=== PATIENT | male | born 1970 | race Caucasian/White ===

== ENCOUNTER 2020-02-08 15:33 | Outpatient (CLI) | payer SELFPAY ==
[2020-02-08 19:34] LABS: Alanine Aminotransferase 28 U/L (0-41); Albumin Level 4.4 g/dL (3.5-5.2); Alkaline Phosphatase 117 IU/L (40-130); Anion Gap 16.4 (5-19); Aspartate Amino Transferase 29 U/L (0-40); Blood Urea Nitrogen 16 mg/dL (6-20); Calcium 9.4 mg/dL (8.5-10.5); Carbon Dioxide 24 mmol/L (22-29); Chloride 101 mmol/L (98-107); Globulin 2.4 g/dL (1.3-4.6); Glomerular Filtration Rate 53.4 mL/min (90-130); Glucose 137 mg/dL (65-115); Osmolality Calculated 282 mOsm/kg (285-295); Potassium 4.4 mmol/L (3.5-5.1); Sodium 137 mmol/L (136-145); Total Bilirubin 0.4 mg/dL (0.15-1.2); Total Protein 6.8 g/dL (6.6-8.7)
== END 2020-02-08 15:34 | disposition home or self-care (01) ==
LOC: LAB 15:37
DX: Z12.5 Encounter for screening for malignant neoplasm of prostate (principal)
CPT/HCPCS: 80053; 84153

== ENCOUNTER → 2024-11-10 07:45 | Outpatient (BNVA) | payer BC, MEDICAID, SELFPAY | PROVIDERS: PCP Electrodiagnostic Medicine; Visit Provider Physician Assistant | DX: G56.03 Carpal tunnel syndrome, bilateral upper limbs (principal); M65.332 Trigger finger, left middle finger; G56.23 Lesion of ulnar nerve, bilateral upper limbs | CPT/HCPCS: 73130 ==

== ENCOUNTER 2025-02-11 06:10 | Day surgery (SDC) | payer BC, MEDICAID, SELFPAY ==
[2025-02-11] VITALS (11 sets, daily range): BP systolic 126–182; BP diastolic 62–90; PULSE 57–75; RESP 12–17; TEMP 36.1–37; O2SAT 96–98; BMI 30.2
[2025-02-11] MEDS: acetaminophen 1,000 MG/100 ML PIGGYBACK 400 MG IV (06:57)
--- NOTE | 2025-02-11 07:16 | W.PM.OPSFHP ---
Same Day Surgery H&P Indication for Procedure/HPI DATE OF PROCEDURE: February 11, 2025 CHIEF COMPLAINT/INDICATIONFOR SURGICAL PROCEDURE: Left carpal tunnel syndrome, left cubital tunnel syndrome PREOP DIAGNOSIS: Left carpal tunnel syndrome, left cubital tunnel syndrome PLANNED PROCEDURE: Operation Date: 02/11/25 07:45 Proposed Procedures p LEFT Carpal Tunnel Release(Left) - Daniele Caswell, DO s LEFT Cubital Tunnel Release(Left) - Daniele Caswell, DO s POSSIBLE Transposition Nerve Upper Extremity(Left) - Daniele Caswell, DO Medications/Allergies* Home Medications ?Medication ?Instructions ?Recorded ?Confirmed ?Type tamsulosin 0.4 mg capsule 0.4 mg PO DAILY 12/23/24 02/10/25 History Allergies/Adverse Reactions Allergy/AdvReac Type Severity Reaction Status Date / Time No Known Allergies Allergy Verified 12/23/24 10:23 Current Medications: Generic Name Dose Route Start Last Admin Trade Name Freq PRN Reason Stop Dose Admin Sodium Chloride 1,000 mls @ 30 mls/hr 02/11/25 06:30 02/11/25 06:58 Sodium Chloride 0.9% IV 02/12/25 06:29 30 mls/hr .Q24H SURYA Administration Pertinent History/Comorbid Conditions* Social History Smoking and tobacco/nicotine status: current every day tobacco/nicotine user Pertinent Exam Findings alert, oriented x 3, operative site marked and procedure specific exam findings Please refer to detail orthopedic examination on 12/23/2024 listed below: Bilateral Carpal Tunnel Exam: Normal C-spine ROM, No pain. Negative Spurling's Negative Tinel's bilateral @ shoulder, Normal ROM Mild positive Tinel's @ elbow, Normal ROM, -----only goes down to the wrist Positive median compression test wrist bilaterally Positive Phalen's Thenar weakness, no significant atrophy appreciated No Intrinsic atrophy noted bilaterally. -Mild positive Tinel's over carpal Bilateral Wrist Exam: Tenderness to palpation over Guyon's canal with positive, pronation and Tinel's over this, No pain with wrist extension bilaterally Tenderness to palpation over lateral epicondyle bilaterally Radial pulse 2+ fingers are warm and well perfused with normal cap refill under 2 seconds. Recommendations Risks and benefits of procedure reviewed and Patient/family agree to proceed Surgery/Procedure today Other Plans: Plan to proceed to the OR today for for left carpal tunnel release and left cubital tunnel release with possible ulnar nerve transposition. Patient understands incidence procedure risk benefits complication alternatives surgery and through shared decision making patient elects proceed with surgical invention. All questions answered at this time. Coding Level of Care Code Acute Code for Chg Fwd
--- NOTE | 2025-02-11 07:34 | ANES.PREANE2 ---
Pre-Anesthetic Assessment Height/Weight: Height 6 ft 2 in Weight 235 lb Temp Pulse Resp BP Pulse Ox O2 Del Method 97.0 F L 57 L 16 127/88 97 Room Air 02/11/25 06:40 02/11/25 06:40 02/11/25 06:40 02/11/25 06:40 02/11/25 06:40 02/11/25 06:40 Preop Diagnosis: Left carpal tunnel syndrome, left cubital tunnel syndrome Operation Date: 02/11/25 07:45 Proposed Procedures p LEFT Carpal Tunnel Release(Left) - Daniele Chelo, DO s LEFT Cubital Tunnel Release(Left) - Daniele Chelo, DO s POSSIBLE Transposition Nerve Upper Extremity(Left) - Daniele Payne, DO Was Beta Taiwo taken within 24 hours: N/A Was Clonidine taken within 24 hours: N/A Last intake: Intake Last Liquid Date 02/10/25 Last Liquid Time 22:30 Last Solid Date 02/10/25 Last Solid Time 21:30 Social No alcohol and No tobacco Exam alert, oriented x 3, clear to auscultation bilaterally and regular rate & rhythm Airway Submandibular: within normal limits Cervical ROM: within normal limits Mallampati: Class III Dentition: full Anesthetic Plan ASA status: 2 Anesthesia: General and Regional (specify below) Other: No prior issues with anesthesia NPO since yesterday evening Current smoker, nicotine and marijuana Denies any cardiac or pulmonary issues METs greater than 4 Plan for general anesthesia with preop nerve block Medications/Allergies Home Medications ?Medication ?Instructions ?Recorded ?Confirmed ?Last Taken ?Type tamsulosin 0.4 mg capsule 0.4 mg PO DAILY 12/23/24 02/10/25 02/10/25 History hydrocodone 5 mg-acetaminophen 325 1 tab PO Q6H PRN pain 5 days #20 02/11/25 Unknown Rx mg tablet tabs Allergies Allergy/AdvReac Type Severity Reaction Status Date / Time No Known Allergies Allergy Verified 12/23/24 10:23 Current Medications Generic Name Dose Route Start Last Admin Trade Name Freq PRN Reason Stop Dose Admin Sodium Chloride 1,000 mls @ 30 mls/hr 02/11/25 06:30 02/11/25 06:58 Sodium Chloride 0.9% IV 02/12/25 06:29 30 mls/hr .Q24H SURYA Administration PFSH Anesthesia Social History Smoking and tobacco/nicotine status: current every day tobacco/nicotine user
--- NOTE | 2025-02-11 08:02 | ANES.PROC ---
Anesthesia Procedures Procedure/Date: 02/11/25 Nerve Block ^: Nerve Block 1: Main Anesthesia: other Time Out Performed: Yes Consent: requested by attending/covering physician and from patient Laterality: Left Nerve block location: supraclavicular Anesthesia monitors applied: pulse oximetry, EKG, BP cuff and oxygen Anesthetic Used: ropivicaine 0.5% Amount of anesthesia used (mL): 30 Ultrasound used to: recognize landmarks Nerve Stimulator Used?: Yes Interscalene/Femoral BLK: other needle (pjunk 4inch) Injection: neg aspiration of heme Patient Tolerated Procedure: well Complications: none Additional Comments: decadron 4mg added to block
[2025-02-11] MEDS: ceFAZolin 2,000 MG in sodium chloride 0.9% (plus) 50 ML 100 MG IV (08:27)
--- NOTE | 2025-02-11 09:08 | P.OP_ITS ---
Operative Report Date of procedure: February 11, 2025 Surgeon: Daniele Whitney DO Equipment Man: Brian Whitney PA-C: PA was necessary for assistance in this case with hand positioning to execute the procedure, retraction and protection of neurovascular structures as well as to assist with wound closure and dressing application. Procedure: Preoperative diagnosis: Left carpal tunnel syndrome Left cubital tunnel syndrome Postoperative diagnosis: Same Procedure done: Left?carpal?tunnel release Left?cubital tunnel tunnel release (ulnar nerve decompression at elbow) Surgeon: Daniele Whitney DO Estimated blood loss: 5 mL Tourniquet -15 minutes IV fluids: 500 mL Complications: None Findings: See operative report narrative Condition: stable Disposition: same day Brief History: Patient's been seen and worked up in the outpatient setting and findings consistent with preoperative diagnosis.? 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 As result through shared decision making agreed to proceed with? Left?carpal?tunnel and Left?cubital tunnel release with possible ulnar nerve transposition we talked about treatment options as far as nonoperative and operative intervention.? Understands risk benefits complication alternatives surgical nonsurgical treatment options.? Understanding his risks he agrees to proceed with surgical intervention. ? Consent obtained in preoperative holding area.. Procedure: Patient seen evaluate in the preoperative holding area.? Consent was reviewed and signed with patient.? Correct extremity marked.? Patient seen evaluated by anesthesia department once cleared for surgery was then taken back to the operative suite placed in supine position all bony prominences well-padded patient properly secured to bed.? Left upper extremity placed onto armboard.? Nonsterile tourniquet applied Left upper arm.? Patient then underwent anesthesia per the anesthesia department.? Patient's Left upper extremity was then prepped and draped in standard orthopedic fashion.? Final timeout performed.? Patient received appropriate preoperative antibiotics. Esmarch was used exsanguinate the Left upper extremity.? Tourniquet was insufflated to 250 mmHg. I started with the?carpal?tunnel release first.? I made a standard open?carpal?tunnel release starting with the distal most extent in the palm at the Corona's cardinal line and the incision line was made in line with the fourth ray and ended just distal to the wrist crease.? Sharp scalpel incision was made through skin and subcutaneous tissue I then utilizing self retainer then began to dissect with dissection scissors split longitudinally the palmar fascia.? Next I then utilizing my human services assistant Fredi retractors subsequently utilizing scalpel feathered through the palmaris brevis as well as through the transverse?carpal?ligament distally.? Once I encountered the floor of the transverse?carpal?ligament and entered into the?carpal?tunnel I then switched to dissection scissors.? Carefully released the distal extent of the transverse?carpal?ligament to the palmar fat.? Care was to protect the recurrent branch and not injured this during this part of the case.? Next I then placed a [place] underneath the transverse?carpal?ligament proximally to protect the nerve in the?carpal?tunnel contents.? And then I subsequently under loupe magnifi cation utilize my dissection scissors to release the transverse?carpal?ligament into the antebrachial fascia under direct visualization with care to keep my scissors with a curved ulnarly away from the palmar cutaneous branch.? The transverse?carpal?was then completely decompressed proximally and a [place] was then placed both distally and proximally throughout the?carpal?tunnel and had complete decompression of the nerve.? The nerve did appear to have hourglass shape as it went through the?carpal?tunnel.? With significant irritation noted around the nerve.? No masses were noted within the contents of the?carpal?tunnel.? This completed the?carpal?tunnel release and then I subsequently irrigated the wound bed and placed a wet Ray-Anu into the incision for later closure. Next marked out the landmarks of the Left elbow of the medial epicondyle and olecranon and made a curvilinear incision following the course of the ulnar nerve at the medial aspect of the elbow.? Sharp scalpel incision was made through skin and subcutaneous tissue.? Next I switched to Littler dissection scissors and spread in plane of the medial antebrachial cutaneous nerve branching which was protected throughout this part of the dissection.? Then I directly came down over the fascia and identified the 2 heads of the FCU fascia and split this Left in the middle and subsequently identified my ulnar nerve distally.? This was then completely released distally under direct visualization and loupe magnification.? Once the nerve was then identified I then subsequently tracked this proximally and released this through Uribe's ligament as well as complete decompression of the nerve proximally all the way past the intermuscular septum.? The nerve was completely released and decompressed both proximally and distally.? Ulnar nerve neurolysis performed and completed both proximally and distally with dissection scissors.? I then took the elbow through range of motion and there was no instability or subluxating of the ulnar nerve.? This completed?cubital tunnel release.? Next the wound bed was thoroughly irrigated.? Tourniquet was deflated.? Hemostasis was satisfactory at the?cubital tunnel release surgery site. I then inspected the?carpal?tunnel incision and this was found to have satisfactory hemostasis and all this was maintained through bipolar electrocautery.? At this point time I sequentially closed ?cubital tunnel site with 3-0 Vicryl suture in a running horizontal mattress nylon stitch.? ? The?carpal?tunnel release surgery was then closed in standard interrupted mattress fashion.? Dressing was Xeroform 4 x 4's ABD Curlex soft roll and an John wrap has a bulky soft dressing. Patient was then awakened from anesthesia and taken to PACU in stable condition. Disposition: Patient taken to PACU in stable condition recovering well.? Patient will receive appropriate discharge instructions as well as pain medication postoperatively.? We will follow-up with me in the office in 2 weeks.? Patient flash farias agrees with current plan.? All questions answered.? He understands if any questions or concerns and contact the office for follow-up appointment.
--- NOTE | 2025-02-11 09:23 | W.PM.BPON ---
Date of Procedure: [February 11, 2025] Surgeon: [Dr. Whitney DO] Frozen Meat Cutter(s): [Brian Whitney PA-C] Procedure(s) performed: [Left carpal tunnel release Left cubital tunnel release] Findings of the procedure(s): [Left carpal tunnel syndrome and left cubital tunnel syndrome. No subluxation of ulnar nerve at elbow so no ulnar nerve transposition performed. Procedure went well and as planned] Estimated blood loss: [5 mL] Specimen(s) removed: [N/A] Post-operative diagnosis: [Left carpal tunnel syndrome and left cubital tunnel syndrome]
--- NOTE | 2025-02-11 10:23 | PM.PACU ---
PACU note Narrative: Patient is a 54-year-old male that just underwent a left carpal tunnel release and left cubital tunnel release. patient transferred to PACU in stable condition. Pain is well controlled. Dressing on hand is dry and in place. Shoulder sling on. Patient's fingers are warm and well-perfused. normal cap refill under 2 seconds. Unable to further assess motor or sensation in arm due to residual block. Exam: awake Disposition: discharged
--- NOTE | 2025-02-11 10:40 | ANE.PACU2 ---
Inpatient post-anesthesia follow up: Airway intact: Yes Vital signs: Temperature 97 F Pulse Rate 65 Respiratory Rate 17 Blood Pressure 159/83 Pulse Oximetry 96 Oxygen Delivery Me thod Room Air Oxygen Flow Rate 6 Fraction of Inspir ed Oxygen Hydration adequate: Yes Nausea and vomiting: No Pain level: 1 Mental status: Baseline
== END 2025-02-11 10:40 | disposition home or self-care (01) ==
PROVIDERS: PCP Electrodiagnostic Medicine; Visit Provider Student in an Organized Health Care Education/Training Program
PROC: (CPT 64721; principal; 2025-02-11 07:45)
PROC: (CPT 64718; 2025-02-11 07:45)
DX: G56.02 Carpal tunnel syndrome, left upper limb (principal); G56.22 Lesion of ulnar nerve, left upper limb; F17.200 Nicotine dependence, unspecified, uncomplicated
CPT/HCPCS: 64718; 64721; J0131; J0690; J1100; J1885; J2250; J2405; J2704; J3010; J7030; J9999

== ENCOUNTER 2025-03-18 06:04 | Day surgery (SDC) | payer BC, MEDICAID, SELFPAY ==
[2025-03-18] VITALS (10 sets, daily range): BP systolic 99–128; BP diastolic 65–84; PULSE 63–76; RESP 13–21; TEMP 36.1–36.3; O2SAT 93–97; BMI 29.5
[2025-03-18] MEDS: acetaminophen 1,000 MG/100 ML PIGGYBACK 400 MG IV (06:25)
--- NOTE | 2025-03-18 06:42 | ANES.PREANE2 ---
Pre-Anesthetic Assessment Height/Weight: Height 6 ft 2 in Weight 230 lb Temp Pulse Resp BP Pulse Ox O2 Del Method 97 F L 68 16 128/84 97 Room Air 03/18/25 06:12 03/18/25 06:12 03/18/25 06:12 03/18/25 06:12 03/18/25 06:12 03/18/25 06:12 Preop Diagnosis: Carpal/cubital tunnel syndrome Operation Date: 03/18/25 07:00 Proposed Procedures p Carpal Tunnel Release(Right) - Daniele Whitney DO s Cubital Tunnel Release Ulnar Nerve Decompression(Right) - Daniele Whitney DO Was Beta Taiwo taken within 24 hours: N/A Was Clonidine taken within 24 hours: N/A Last intake: Intake Last Liquid Date 03/17/25 Last Liquid Time 22:30 Last Solid Date 03/17/25 Last Solid Time 22:00 Social Tobacco Nicotine and marijuana Exam alert, oriented x 3, clear to auscultation bilaterally and regular rate & rhythm Airway Submandibular: within normal limits Cervical ROM: within normal limits Mallampati: Class III Dentition: full Anesthetic Plan ASA status: 2 Anesthesia: General Other: No prior issues with anesthesia NPO since yesterday evening Patient had previous side done and did well but states he he did not like the nerve block because it bothered him that his arm was numb Current smoker, nicotine and marijuana Denies any cardiac or pulmonary issues METs greater than 4 Plan for general anesthesia with local via surgeon. Did discuss possibility of performing peripheral nerve block in recovery if patient was struggling. He does consent to this Medications/Allergies Home Medications ?Medication ?Instructions ?Recorded ?Confirmed ?Last Taken ?Type tamsulosin 0.4 mg capsule 0.4 mg PO DAILY 12/23/24 03/17/25 03/17/25 History Allergies Allergy/AdvReac Type Severity Reaction Status Date / Time No Known Allergies Allergy Verified 03/17/25 08:50 Current Medications Generic Name Dose Route Start Last Admin Trade Name Freq PRN Reason Stop Dose Admin Sodium Chloride 1,000 mls @ 30 mls/hr 03/18/25 06:15 03/18/25 06:24 Sodium Chloride 0.9% IV 03/19/25 06:14 30 mls/hr .Q24H SURYA Administration PFSH Anesthesia Social History Smoking and tobacco/nicotine status: current every day tobacco/nicotine user
--- NOTE | 2025-03-18 06:57 | W.PM.OPSUD ---
Surgery/Procedure H&P Update DATE OF PROCEDURE: March 18, 2025 DATE H&P PERFORMED: 02/24/25 H&P UPDATE INFORMATION: I have reviewed H&P completed within last 30 days, I have examined patient prior to procedure and No changes to prior documentation PREOP DIAGNOSIS: right Carpal/cubital tunnel syndrome PRIMARY INDICATION FOR PROCEDURE: right carpal tunnel syndrome and right cubital tunnel syndrome PLANNED PROCEDURE: Operation Date: 03/18/25 07:00 Proposed Procedures p Carpal Tunnel Release(Right) - Daneile Whitney DO s Cubital Tunnel Release Ulnar Nerve Decompression(Right) - Daniele Whitney DO
[2025-03-18] MEDS: ceFAZolin 2,000 MG in sodium chloride 0.9% (plus) 50 ML 100 MG IV (06:59)
[2025-03-18] MEDS: ROPivacaine 0.5% SDV 30 mL 150 MG INJECTION (07:33)
[2025-03-18] MEDS: lidocaine-epi 1% 20 mL INJ INJECTION (07:34)
--- NOTE | 2025-03-18 07:50 | P.BOP_ITS ---
Date of Procedure: 03/18/2025 Surgeon: Daniele Whitney DO Supervisor Compressed Yeast(s): Ramakrishna Whitney PA-C Procedure(s) performed: Right carpal tunnel release Right cubital tunnel release (ulnar nerve decompression at the elbow) Findings of the procedure(s): Underwent procedure as planned without issues or complications no subluxation of the ulnar nerve was identified as a result no transposition performed. Patient taken recovery stable condition. Estimated blood loss: 5 mL Specimen(s) removed: None Post-operative diagnosis: Right carpal tunnel syndrome, right cubital tunnel syndrome
--- NOTE | 2025-03-18 07:51 | P.OP_ITS ---
Operative Report Date of procedure: March 18, 2025 Surgeon: Daniele Whitney DO [employer]ement Truck Driver: Brian Whitney PA-C: PA was necessary for assistance in this case with hand positioning to execute the procedure, retraction and protection of neurovascular structures as well as to assist with wound closure and dressing application. Procedure: Preoperative diagnosis: Right carpal tunnel syndrome Right cubital tunnel syndrome Postop Diagnosis: Same Procedure done: Right carpal tunnel release Right?cubital tunnel tunnel release (ulnar nerve decompression at elbow) Surgeon: Daniele Whitney DO Estimated blood loss: 5 mL Tourniquet? 18 minutes IV fluids: 500 mL Complications: None Findings: See operative report narrative Condition: stable Disposition: same day Brief History: Patient's been seen and worked up in the outpatient setting and findings consistent with preoperative diagnosis.? Patient has right carpal tunnel syndrome as well as right?cubital tunnel syndrome which has been worked up in the outpatient setting has physical exam findings consistent with this as well as confirmatory nerve conduction/EMG nerve conduction study consistent with diagnosis.? Patient's failed conservative treatment.? As result through shared decision making agreed to proceed with? right carpal tunnel and right?cubital tunnel release with possible nerve transposition we talked about treatment options as far as nonoperative and operative intervention.? Understands risk benefits complication alternatives surgical nonsurgical treatment options.? Understanding his risks he agrees to proceed with surgical intervention. Understanding these risks he agrees to proceed with surgery.? Consent obtained in preoperative holding area. Procedure: Patient seen evaluate in the preoperative holding area.? Consent was reviewed and signed with patient.? Correct extremity marked.? Patient seen evaluated by anesthesia department once cleared for surgery was then taken back to the opera tive suite placed in supine position all bony prominences well-padded patient properly secured to bed.? right upper extremity placed onto armboard.? Nonsterile tourniquet applied right upper arm.? Patient then underwent anesthesia per the anesthesia department.? Patient's right upper extremity was then prepped and draped in standard orthopedic fashion.? Final timeout performed.? Patient received appropriate preoperative antibiotics. Esmarch was used exsanguinate the right upper extremity.? Tourniquet was insufflated to 250 mmHg. I started with the carpal tunnel release first.? I made a standard open carpal tunnel release starting with the distal most extent in the palm at the Corona's cardinal line and the incision line was made in line with the fourth ray and ended just distal to the wrist crease.? Sharp scalpel incision was made through skin and subcutaneous tissue I then utilizing self retainer then began to dissect with dissection scissors split longitudinally the palmar fascia.? Next I then utilizing my personnel security assistant Fredi retractors subsequently utilizing scalpel feathered through the palmaris brevis as well as through the transverse carpal ligament distally.? Once I encountered the floor of the transverse carpal ligament and entered into the carpal tunnel I then switched to dissection scissors.? Carefully released the distal extent of the transverse carpal ligament to the palmar fat.? Care was to protect the recurrent branch and not injured this during this part of the case.? Next I then placed a [place]iss[place] underneath the transverse carpal ligament proximally to protect the nerve in the carpal tunnel contents.? And then I subsequently under loupe magnification utilize my dissection scissors to release the transverse carpal ligament into the antebrachial fascia under direct visualization with care to keep my scissors with a curved ulnarly away from the palmar cutaneous branch.? The transverse carpal was then completely decompressed proximally and a [place]iss[place] was then placed both distally and proximally throughout the carpal tunnel and had complete decompression of the nerve.? The nerve did appear to have hourglass shape as it went through the carpal tunnel.? With significant irritation noted around the nerve.? No masses were noted within the contents of the carpal tunnel.? This completed the carpal tunnel release and then I subsequently irrigated the wound bed and placed a wet Ray-Anu into the incision for later closure. Next marked out the landmarks of the right elbow of the medial epicondyle and olecranon and made a curvilinear incision following the course of the ulnar nerve at the medial aspect of the elbow.? Sharp scalpel incision was made through skin and subcutaneous tissue.? Next I switched to Littler dissection scissors and spread in plane of the medial antebrachial cutaneous nerve branching which was protected throughout this part of the dissection.? Then I directly came down over the fascia and identified the 2 heads of the FCU fascia and split this right in the middle and subsequently identified my ulnar nerve distally.? This was then completely released distally under direct visualization and loupe magnification.? Once the nerve was then identified I then subsequently tracked this proximally and released this through Uribe's ligament as well as complete decompression of the nerve proximally all the way past the intermuscula r septum.? The nerve was completely released and decompressed both proximally and distally.? Ulnar nerve neurolysis performed and completed both proximally and distally with dissection scissors.? I then took the elbow through range of motion and there was no instability or subluxating of the ulnar nerve.? This completed?cubital tunnel release.? ?Next the wound bed was thoroughly irrigated.? Tourniquet was deflated.? Hemostasis was satisfactory at the?cubital tunnel release surgery site. I then inspected the carpal tunnel incision and this was found to have satisfactory hemostasis and all this was maintained through bipolar electrocautery.? At this point time I sequentially closed?cubital tunnel site with 3-0 Vicryl suture in a running horizontal mattress nylon stitch.? ? The carpal tunnel release surgery was then closed in standard interrupted mattress fashion.? Dressing was Xeroform 4 x 4's ABD Curlex soft roll and an John wrap has a bulky soft dressing. Patient was then awakened from anesthesia and taken to PACU in stable condition. Disposition: Patient taken to PACU in stable condition recovering well.? Patient will receive appropriate discharge instructions as well as pain medication postoperatively.? We will follow-up with me in the office in 2 weeks.? Patient understands agrees with current plan.? All questions answered.? He understands if any questions or concerns and contact the office for follow-up appointment..
--- NOTE | 2025-03-18 08:16 | PM.PACU ---
PACU note Narrative: Patient is a 54-year-old male that just underwent a right carpal tunnel release and right cubital tunnel release. Patient transferred to PACU in stable condition. Pain is well controlled. Dressing on hand is dry and in place. Patient's fingers are warm and well-perfused. Patient can wiggle fingers. normal cap refill under 2 seconds. Patient has normal elbow range of motion. Sensation fingers intact Exam: awake Disposition: discharged
--- NOTE | 2025-03-18 09:16 | ANE.PACU2 ---
Inpatient post-anesthesia follow up: Airway intact: Yes Vital signs: Temperature 97.3 F Pulse Rate 64 Respiratory Rate 18 Blood Pressure 114/78 Pulse Oximetry 96 Oxygen Delivery Me thod Room Air Oxygen Flow Rate Fraction of Inspir ed Oxygen Hydration adequate: Yes Nausea and vomiting: No Pain level: 1 Mental status: Baseline
== END 2025-03-18 09:16 | disposition home or self-care (01) ==
PROVIDERS: PCP Electrodiagnostic Medicine; Visit Provider Student in an Organized Health Care Education/Training Program
PROC: (CPT 64721; principal; 2025-03-18 07:00)
PROC: (CPT 64718; 2025-03-18 07:00)
DX: G56.01 Carpal tunnel syndrome, right upper limb (principal); G56.21 Lesion of ulnar nerve, right upper limb; F17.200 Nicotine dependence, unspecified, uncomplicated; F12.90 Cannabis use, unspecified, uncomplicated
CPT/HCPCS: 64718; 64721; J0131; J0690; J1100; J1885; J2250; J2371; J2405; J2704; J2795; J3010; J7030; J9999